=== PATIENT | female | born 1945 | race Caucasian/White ===

== ENCOUNTER 2016-11-14 09:03 | Outpatient (CLI) | payer MEDICARE ==
--- NOTE | 2016-11-14 11:10 | OP Clinic Progress Note ---
REASON FOR VISIT: Emperatriz Buitrago returns for follow up on her psoriasis and psoriatic arthritis. She is doing well except for her right hand. She has a little rash. She has been using some topical steroids. Otherwise, no joint swelling. No new deformities. Her toes are doing well. She has osteoarthritis of the knees and those are bothering her. She is using a cane and managing to get around. PAST MEDICAL HISTORY: 1. Osteoarthritis. 2. Psoriatic arthritis. 3. Gout. 4. Asthma. 5. Type 2 diabetes. 6. Glaucoma. 7. Hypertension. 8. History of strokes and TIAs. 9. Peptic ulcer disease. 10. Overactive bladder. 11. Tonsillectomy and adenoidectomy. 12. Hysterectomy. 13. Foot surgery. 14. Right ankle surgery. PRESENT MEDICATIONS: 1. Otezla 30 mg twice a day. 2. Gabapentin 200 mg twice a day. 3. Eliquis 5 mg daily. 4. Omeprazole 20 mg daily. 5. Tramadol as needed. 6. Myrbetriq 50 mg daily. 7. Losartan 25 mg daily. 8. Verapamil 120 mg twice a day. 9. Clonidine 0.2 mg 3 times a day. 10. Metformin 1000 mg twice a day. 11. Montelukast. 12. Symbicort. 13. Theophylline. 14. ProAir. 15. Prednisone 5 mg daily. 16. Allopurinol 300 mg daily. ALLERGIES: 1. Penicillin. 2. Sulfa drugs. 3. Macrobid. 4. Keflex. 5. Talwin. 6. Tetanus toxoid. 7. Pneumonia vaccine. 8. Lyrica. 9. Neosporin. 10. Curel. 11. Aveeno. 12. Trazodone. 13. Alsen. 14. Eucalyptus. 15. Tripp brush. 16. American thistle. 17. Milk. 18. Tobacco. 19. 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 She has failed methotrexate in the past. REVIEW OF SYSTEMS: No fevers, chills, sweats, chest pain, shortness of breath, cough, or wheezing. She did have a gas leak at her house. She was not aware of it. Ever since she noted it and the gas people came and fixed it, she has been feeling significantly better. PHYSICAL EXAMINATION: VITAL SIGNS: BP: 158/70, heart rate 80, R: 12, T: 97.1. HEENT: Sclerae are anicteric. Conjunctivae are pink. No stomatitis or glossitis. LUNGS: Clear. HEART: Regular rate and rhythm. ABDOMEN: Soft. VASCULAR: No edema or cyanosis. PERIPHERAL JOINTS: No synovitis at the DIPs, PIPs, MCPs, wrists, elbows, shoulders, hips, knees, ankles, and feet. No dry skin of right hand. IMPRESSION: 1. Psoriasis and psoriatic arthritis, doing well. Continue Otezla 30 mg twice a day and Prednisone 5 mg daily. 2. Gout, stable. Continue Allopurinol. No need for labs today. 3. Osteoarthritis. Continue weight loss and exercise. Thank you very much, ALEXANDRA
== END 2016-11-14 09:04 ==
LOC: RHEU 09:03
PROVIDERS: ATTEND Internal Medicine
DX: L40.50 Arthropathic psoriasis, unspecified (principal)
CPT/HCPCS: 99213; G0463

== ENCOUNTER 2017-05-15 08:48 | Outpatient (CLI) | payer MEDICARE, OTHER ==
--- NOTE | 2017-05-15 10:41 | OP Clinic Progress Note ---
REASON FOR VISIT: Emperatriz Buitrago returns for follow up of psoriasis and psoriatic arthritis and she is doing quite well from that point of view. She has had no skin rashes and she feels the Otezla has resulted in significant improvement in her joint pain and swelling. She also has a history of gouty arthritis and she has had no flare. She does requires refills. Osteoarthritis of the knees and the left is worse. She has seen Orthopedics and she had an injection which helped a little and there was a discussion about a total knee replacement. PAST MEDICAL HISTORY: As above, as well as: 1. Asthma. 2. Type 2 diabetes. 3. Glaucoma. 4. Hypertension. 5. History of stroke. 6. TIAs. 7. Peptic ulcer disease. 8. Overactive bladder. 9. Tonsillectomy and adenoidectomy. 10. Hysterectomy. 11. Foot surgery. 12. Right ankle surgery. PRESENT MEDICATIONS: 1. Otezla 30 mg twice a day. 2. Gabapentin. 3. Eliquis 5 mg daily. 4. Omeprazole. 5. Tramadol. 6. Losartan. 7. Verapamil. 8. Clonidine. 9. Metformin. 10. Montelukast. 11. Symbicort. 12. Theophylline. 13. ProAir. 14. Prednisone 5 mg daily. 15. Allopurinol 300 mg daily. ALLERGIES: Allergies are again reviewed and listed from my last note of November 14, 2016. There has been no changes. Note, she has failed methotrexate in the past. REVIEW OF SYSTEMS: She has done well. No fevers, chills, sweats, chest pain, shortness of breath, cough, wheezing, nausea, or vomiting. No falls. She uses a cane. PHYSICAL EXAMINATION: General: On exam, she looks well. Vital Signs: HT: 5 feet 7 inches. Weight: 210. T: 98.2, R: 20, heart rate 78 and regular, BP: 150/80. HEENT: Grossly unremarkable. Skin and nail exam: Unremarkable. Lungs: Clear. Heart: Regular rate and rhythm. Abdomen: Soft. Vascular: No edema or cyanosis. Peripheral Joints: Hard bony swelling at the DIPs and PIPs, otherwise, no synovitis. MCPs, wrists, elbows, shoulders, hips, and knees with no synovitis. Hard bony swelling of the knees is noted. IMPRESSION: 1. Psoriasis and psoriatic arthritis, doing well on Otezla. No changes. No need for labs today. 2. Gout, stable. PLAN: I will see her back in 6 months. Refills were given. Thank you very much. Best regards, cc: Dr. Imelda MORRIS
== END 2017-05-15 09:00 ==
LOC: RHEU 08:48
PROVIDERS: ATTEND Internal Medicine
DX: L40.50 Arthropathic psoriasis, unspecified (principal); L40.9 Psoriasis, unspecified; M10.9 Gout, unspecified; M17.0 Bilateral primary osteoarthritis of knee
CPT/HCPCS: 99213; G0463

== ENCOUNTER 2017-11-13 09:02 | Outpatient (CLI) | payer MEDICARE, OTHER ==
--- NOTE | 2017-11-13 13:43 | OP Clinic Progress Note ---
REASON FOR VISIT: Emperatriz Buitrago returns for follow up of psoriasis and psoriatic arthritis. From that point of view, she is doing well. She has had no skin rashes and no joint swelling. History of gouty arthritis, no flares. Osteoarthritis of the knees and that remains unchanged. She did have a syncopal episode at home in September and was told that she probably had another stroke. She had been hospitalized at [facility]. PAST MEDICAL HISTORY: 1. Asthma. 2. Diabetes type 2. 3. Glaucoma. 4. Hypertension. 5. Cerebrovascular disease. 6. Peptic ulcer disease. 7. Tonsillectomy and adenoidectomy. 8. Hysterectomy. 9. Foot surgery. 10. Ankle surgery. PRESENT MEDICATIONS: 1. Otezla 30 mg twice a day. 2. Gabapentin. 3. Xarelto. 4. Omeprazole. 5. Tramadol. 6. Losartan. 7. Verapamil. 8. Clonidine. 9. Metformin. 10. Montelukast. 11. Symbicort. 12. Theophylline. 13. ProAir. 14. Prednisone 5 mg daily. 15. Allopurinol 300 mg daily. PRIOR MEDICATIONS TRIED: 1. Methotrexate. ALLERGIES: Laure. REVIEW OF SYSTEMS: As above. PHYSICAL EXAMINATION: GENERAL: She looks well. VITAL SIGNS: Vital signs are stable. Height: 5 feet 7 inches. Weight: 196. T: 96.5, R: 20, heart rate 70, BP: 130/70. HEENT: Sclerae are anicteric. Conjunctivae are pink. No stomatitis or glossitis. LUNGS: Clear. HEART: Regular rhythm. ABDOMEN: Soft. VASCULAR: No edema or cyanosis. PERIPHERAL JOINTS: No synovitis at the DIPs, PIPs, MCPs, wrists, elbows, shoulders, hips, knees, ankles, and feet. IMPRESSION: Psoriasis and psoriatic arthritis, active and stable, on Otezla. PLAN: 1. No changes at this time. 2. I will see her back in 6 months. Thank you very much. Best regards, cc: Dr. Imelda MORRIS
== END 2017-11-13 09:04 ==
LOC: RHEU 09:02
PROVIDERS: ATTEND Internal Medicine
DX: L40.9 Psoriasis, unspecified (principal); L40.53 Psoriatic spondylitis
CPT/HCPCS: 99213; G0463

== ENCOUNTER 2018-05-14 08:58 | Outpatient (CLI) | payer MEDICARE, OTHER ==
--- NOTE | 2018-05-14 12:03 | OP Clinic Progress Note ---
PRIMARY CARE PHYSICIAN: Dr. Imelda Brown REASON FOR VISIT: Emperatriz Buitrago returns for follow up on her psoriasis, psoriatic arthritis, and gout. She is doing well. She has had no significant flares except for her left 3rd PIP joint. It occasionally hurts, swells, and she has some loss of motion. She also has some pain at the base of her right thumb but it is not swelling. She has osteoarthritis of her knees. She has some grinding and some tenderness. She is using a walker but, again, no swelling. Since I last saw her 6 months ago, she has had no new hospitalizations or medical problems. PAST MEDICAL HISTORY: As above, as well as: 1. Asthma. 2. Type 2 diabetes. 3. Glaucoma. 4. Hypertension. 5. Cerebrovascular accidents in 1997 and 2018. 6. Atrial fibrillation. 7. Nonsteroidal-induced peptic ulcers. PAST SURGICAL HISTORY: 1. Tonsillectomy. 2. Hemorrhoidectomy. 3. Hysterectomy. 4. Foot surgery for flexion deformities of the toes. 5. Right ankle surgery. 6. Cataract extraction. PRESENT MEDICATIONS: 1. Prednisone 5 mg daily. 2. Allopurinol 300 mg once a day. 3. Pulmicort. 4. Montelukast. 5. Humalog Flexpen. 6. Levemir Flexpen. 7. Latanoprost 1 drop in each eye daily. 8. Brimondine 1 drop in left eye twice daily. 9. Clonidine 0.2 mg 3 times a day. 10. Losartan 25 mg daily. 11. Verapamil 120 mg twice a day. 12. Tramadol as needed. 13. Gabapentin 300 mg 3 times a day. 14. Otezla 30 mg 1 tablet twice a day. 15. Xarelto 20 mg daily. 16. Omeprazole 20 mg daily. 17. Vitamins. ALLERGIES AND SENSITIVITIES: 1. Penicillin. 2. Sulfa. 3. Macrobid. 4. Keflex. 5. Talwin. 6. Tetanus. 7. Lyrica. 8. Lumigan. 9. Neosporin. 10. Trazodone. REVIEW OF SYSTEMS: No fevers, chills, sweats, chest pain, shortness of breath, cough, wheezing, nausea, vomiting, or diarrhea. PHYSICAL EXAMINATION: GENERAL: She looks well. VITAL SIGNS: Height: 5 feet 7 inches. Weight: 197 pounds. T: 97.4, R: 20, Heart rate 75, BP: 160/90. HEENT: Sclerae are anicteric. Conjunctivae are pink. No stomatitis or glossitis. LUNGS: Clear bilaterally with no crackles or wheezing. HEART: Regular rate and rhythm. ABDOMEN: Soft and nontender. VASCULAR: No edema or cyanosis. Skin: No rashes. PERIPHERAL JOINTS: Hard bony swelling at the DIPs and PIPs. Some CMC squaring but no synovitis or effusions. Elbows, shoulders, hips, knees, ankles, and feet with no effusions or tenderness. IMPRESSION AND PLAN: 1. Psoriasis and psoriatic arthritis. Doing well on Otezla. No changes at this time. 2. Gout. She apparently had a recent uric acid level checked. We will try to obtain those labs. No changes at this time. Thank you very much. cc: Dr. Imelda MORRIS
== END 2018-05-14 09:00 ==
LOC: RHEU 08:58
PROVIDERS: ATTEND Internal Medicine
DX: L40.9 Psoriasis, unspecified (principal); L40.50 Arthropathic psoriasis, unspecified; M10.9 Gout, unspecified
CPT/HCPCS: 99214; G0463